=== PATIENT | female | born 1975 | race Caucasian/White ===

== ENCOUNTER 2019-03-15 07:40 | Inpatient (IN) | payer BC, SELFPAY ==
[2016-12-01 05:36] VITALS: BMI 27.0
[2019-03-15 07:52] VITALS: BMI 27.6
[2019-03-15] MEDS: Lactated Ringers 1,000 ML 50 ML IV ×4 (08:22→23:26)
[2019-03-15] MEDS: Oxytocin 30 units/NS 500 ml 30 UNITS/500 ML IV.SOLN IV (08:22)
[2019-03-15] MEDS: 0.9% Normal Saline 100 ML IV.SOLN. INTRA-UTER (08:23)
[2019-03-15 08:43] LABS: Hemoglobin 11.1 g/dl (12.0-15.0); Mean Corp Hgb Conc 34.7 g/gl (32-36); Mean Corpuscular Hgb 32.7 pg (27.0-32.0); Mean Corpuscular Volume 94.4 fL (81-99); Mean Platelet Vol. 11.3 fl (6.2-12.0); Platelet Count 190 K/mm3 (150-450); RBC Distribution Width CV 12.8 % (11.6-14.6); RBC Distribution Width SD 43.9 fl (35.1-43.9); Red Blood Count 3.39 M/mm3 (4.2-5.4); Scan Indicated on CBC? Y/N NO; White Blood Count 8.6 K/mm3 (4.4-11.0)
[2019-03-15] MEDS: fentaNYL-bupivacaine (epidural) 100 ML BAG EPIDURAL ×2 (18:25→22:39)
[2019-03-15] MEDS: Amnioinfusion- 0.9% NS 1,000 ML IV.SOLN. 200 ML INTRA-UTER (18:35)
--- NOTE | 2019-03-15 21:35 | PCM.HP.OB ---
History Date of Admission: 12/04/14 Final EVANGELISTA: 03/19/19 Gestational age: 39 Weeks and 3 Days History of this : This is a 43 year-old, G 3P2 @ 39 3/7 weeks gestation presents for induction of labor due to advanced maternal age. has been uncomplicated to date. 2 previous spontaneous vaginal deliveries without complications in the past Allergies amoxicillin Allergy (Verified 11/11/16 08:39) Rash wheezing cat dander Allergy (Verified 11/11/16 08:38) Other wheezing dog dander Allergy (Verified 11/11/16 08:38) Other Home Medications: Home Medications Ferrous Sulfate [Iron Supplement] 325 mg PO DAILY 12/04/14 Vits [Prenatabs FA ] 1 tablet PO DAILY 12/04/14 Smoking Status: Never smoker Alcohol: None Number of Fetus(es): 1 Heart Tracing: upon admission normal baseline, moderate variability, + accels TOCO Analysis: irreg ctxs History Past Pregnancies: Past Pregnancies Delivery Date Name GA/Weeks Outcome Route Weight Gender Labor Length Anesthesia Delivery Location Provider FOB Expected Delivery Method: Spontaneous Vaginal Review of Systems Constitutional: Denies: Anorexia, Chills, Fever Eyes: Denies: Blurred vision Cardiovascular: Denies: Chest Pain Respiratory: Denies: Cough, Shortness of Breath Genitourinary: Denies: Dysuria Skin: Denies: Rash Neurological: Denies: Blurred vision, Change in Speech Physical Exam General: Alert, Cooperative, No apparent distress Cardiovascular: Regular rate Lungs: Normal air movement Abdomen: Soft, Non-Distended, Gravid, Appropriate for Gestational Age Extremities:: No edema Neurological: Neuro grossly intact Estimated gestational size: Appropriate for gestational size Presentation: Cephalic Cervix Dilation (cm): 1 - medium consistency, mid position Station: -3 Effacement (%): 60 Assessment/Plan This is a 43 year-old, G 3P2 @ 39 3/7 weeks for induction of labor due to advanced maternal age. EFW < 4500 gm clinically, pelvis clinically adequate to expect vaginal delivery Pitocin/gonzales/arom prn for induction Procedure note- at 840 am Gonzales catheter placed into the cervix in the usual sterile fashion and inflated to 30 cc. Placement over internal os confirmed. patient tolerated well.
[2019-03-16] MEDS: Lactated Ringers 1,000 ML 50 ML IV (03:02)
[2019-03-16] MEDS: Oxytocin 30 units/NS 500 ml 30 UNITS/500 ML IV.SOLN 334 UNITS IV (03:57)
--- NOTE | 2019-03-16 04:08 | PCM.OPRPT ---
Vaginal Delivery Maternal Presentation: Medically Indicated Induction - advanced maternal age Method of Induction: Pitocin, De La Fuente Bulb, Amniotomy Amniotic Membrane Rupture Type: Artificial Amniotic Fluid Description: Clear - at rupture, terminal meconium stained fluid Final EVANGELISTA: 03/19/19 Final EVANGELISTA Source: US <20 weeks Gestational age: 39 Weeks and 4 Days Date of Procedure: 03/16/19 Pre-Operative Diagnosis: labor Post-Operative Diagnosis: same Surgery/ Procedure Performed: Spontaneous Vaginal Delivery Type of Anesthesia: Epidural Description of Procedure: A vigorous male infant was delivered SHANNAN over an intact perineum. The remainder the was delivered with maternal pushing and gentle traction only in less than 15 seconds. The Pitocin infusion was initiated for active management of the third stage. The cord was clamped and cut after 1 minute. The infant was attended to by the waiting nursing staff. The placenta was delivered spontaneously and intact. The cervix and vagina were intact. Sponge and needle counts were correct. A vaginal sweep was completed by me. Presentation: SHANNAN Placental Delivery Description: Spontaneous Placenta Disposition: [facility] Cord Vessel Description: 3 Vessels Cord Entanglement: None Drain: De La Fuente to straight drain Estimated Blood Loss: 200 Infant A gender: Male (1 minute): 8 (5 minute): 9 Episiotomy Description: None Laceration: None Medications given after delivery: IV Pitocin Complications: None
[2019-03-16] MEDS: Oxytocin 30 units/NS 500 ml 30 UNITS/500 ML IV.SOLN 167 UNITS IV (04:27)
[2019-03-16] MEDS: Lactated Ringers 1,000 ML 15 ML IV (05:27)
[2019-03-16] MEDS: 0.9% Saline Lock 10 ML Syringe IV (06:28)
[2019-03-16 07:30] VITALS: BP 105/56; PULSE 81; RESP 15; TEMP 36.9
[2019-03-16] MEDS: Naproxen 250 MG Tablet 500 MG PO ×2 (07:58→16:42)
--- NOTE | 2019-03-16 09:07 | NURSING ---
0730 pt oob up to bathroom to void; pt demonstrated pericare; pt gait steady; pt then to chair; pt c/o cramps while nursing - medicated as requested
[2019-03-16 12:00] VITALS: BP 106/52; PULSE 79; RESP 16; TEMP 36.3
[2019-03-16 16:53] VITALS: BP 106/52; PULSE 77; RESP 16; TEMP 36.2
[2019-03-16 20:00] VITALS: BP 100/53; PULSE 77; RESP 14; TEMP 36.5
[2019-03-17] VITALS: PULSE 75; RESP 18
[2019-03-17] MEDS: Naproxen 250 MG Tablet 500 MG PO ×2 (08:13→16:28)
[2019-03-17 08:15] VITALS: BP 120/78; PULSE 70; RESP 16; TEMP 36.3
--- NOTE | 2019-03-17 08:39 | PCM.PN.OB ---
Subjective: Patient sitting up in bed this morning. Reports that she was able to get some sleep last night, feeling more rested this morning. Denies WALKER, scotoma or dizziness. Denies issues with ambulation or urination. Passing flatus but has not had bowel movement yet. Patient reports baby overall latching well. Objective: VSS, Afebrile Nipples without cracks or blisters, no ecchymoses noted Abdomen NT x 4 quadrants, FF midline 3FB below umbilicus +2/4 reflexes in LE, no edema, negative calf tenderness scant rubra lochia, perineum well-approximated - Physical Exam General: Alert, Oriented x3, No apparent distress HEENT: Atraumatic, Normocephalic Lungs: Normal air movement Cardiovascular: Regular rate, Regular Rhythm Abdomen: Soft, Non Tender, Non-Distended Extremities: No edema Psych/Mental Status: Appropriate Vital Signs Temp Pulse Resp BP 97.7 F L 75 18 100/53 L 03/16/19 20:00 03/17/19 00:00 03/17/19 00:00 03/16/19 20:00 Weight: 171 lb 1.259 oz Body Mass Index (BMI) 27.6 Intake and Output for Last 24 Hours 03/15/19 03/16/19 03/17/19 23:59 23:59 23:59 Intake Total 3202 / 3202 2180 / 2180 Output Total 1900 / 1900 2900 / 2900 Balance 1302 / 1302 -720 / -720 Medical Necessity - Tobacco Use Smoking Status: Never smoker Assessment/Plan 43 y/o s/p , PPD #1, Normal PP course P: 1) Continue BF 2) Continue PP orders 3) Anticipate discharge to home tomorrow Christina HALL
[2019-03-17 14:00] VITALS: BP 112/56; PULSE 71; RESP 16; TEMP 37.2
[2019-03-17 20:35] VITALS: BP 114/61; PULSE 71; RESP 18; TEMP 36.9
[2019-03-18 02:06] VITALS: BP 118/58; PULSE 65; RESP 18; TEMP 36.5
--- NOTE | 2019-03-18 08:37 | PCM.PN.OB ---
Subjective: pain well controlled, average lochia - Physical Exam General: Alert, Cooperative, No apparent distress Vital Signs Temp Pulse Resp BP 97.7 F L 65 18 118/58 L 03/18/19 02:06 03/18/19 02:06 03/18/19 02:06 03/18/19 02:06 Oxygen Delivery Method Room Air Weight: 77.6 kg Body Mass Index (BMI) 27.6 Intake and Output for Last 24 Hours 03/16/19 03/17/19 03/18/19 23:59 23:59 23:59 Intake Total 2180 / 2180 Output Total 2900 / 2900 Balance -720 / -720 Medical Necessity - Tobacco Use Smoking Status: Never smoker Assessment/Plan PPD#2 ready for d/c and doing well
--- NOTE | 2019-03-18 08:39 | DCINST_ITS ---
Discharge Diet: No Restrictions Discharge Activity: Return to Normal Activity, May not drive while taking narcotic pain medications., May Shower May resume sexual activity in: 4-6 weeks Additional Activity Instructions:: Nothing in the vagina for 4-6 weeks. You may return to work/school in 6 weeks. Call your doctor if your incision/area has: Continuous Slow Oozing, Sudden Increased Bleeding, Increased Pain/ Swelling, Increased Redness, Foul Smelling Discharge Additional Instructions: If you experience any of the following, contact your healthcare provider. * Bleeding that soaks a pad every hour for 2 hours * Fever 100.4 or higher * Unrelieved incision or abdominal pain * Swelling, redness, discharge or bleeding from your incision or episiotomy site * Your incision begins to separate * Problems urinating (including inability to urinate or burning while urinating). * Visual changes * Severe headache * Flu-like symptoms * Pain or redness in one of both of your breasts * Pain, warmth, tenderness or swelling in your legs, especially the calf area * Frequent nausea and vomiting * Symptoms of depression or anxiety If you experience any of the following, call 911 or go to the nearest Emergency Room. * Chest pain * Problems breathing * Seizure activity * Partial or complete paralysis of a body part, slurred speech, weakness or drooping of the face, or a sudden inability to walk or hold your balance Allergies/Adverse Reactions: Allergies amoxicillin Allergy (Verified 11/11/16 08:39) Rash wheezing cat dander Allergy (Verified 11/11/16 08:38) Other wheezing dog dander Allergy (Verified 11/11/16 08:38) Other Medications to take at Discharge Vits [Prenatabs FA ] 1 tablet PO DAILY 12/04/14 Please Follow Up With: Brenda Loya MD - [phone] When: Call to make an appointment with your doctor in 6 weeks. If you had elevated Blood Pressure or 4th degree laceration you will need to be seen in 2 weeks. Primary Care Physician: Care Physician,No Primary [Primary Care Provider] - Test Results: Test results from this visit will be discussed in further detail at your follow- up appointment, if applicable.
[2019-03-18 08:50] VITALS: BP 122/57; PULSE 71; RESP 16; TEMP 36.4
[2019-03-18] MEDS: Naproxen 250 MG Tablet 500 MG PO (09:05)
== END 2019-03-18 11:30 | disposition home or self-care (01) | DRG 807 ==
PROVIDERS: Admitting Provider Obstetrics & Gynecology; Referring Provider Obstetrics & Gynecology; Visit Provider Obstetrics & Gynecology
DX: O77.0 Labor and delivery complicated by meconium in amniotic fluid (principal); Z37.0 Single live birth; Z3A.39 39 weeks gestation of pregnancy
CPT/HCPCS: 59025; 59050; 85027; 86850; 86900; 99218; J7030; J7120; A4216; G0378

== ENCOUNTER 2022-01-15 09:50 | Emergency (ER) | payer BC, SELFPAY ==
[2022-01-15 09:51] VITALS: BP 130/73; PULSE 93; RESP 17; TEMP 36.4; O2SAT 99; BMI 25.4
--- NOTE | 2022-01-15 10:07 | CT_ITS ---
STUDY: CT BRAIN WITHOUT CONTRAST REASON FOR EXAM: Female, 46 years old. Head injury RADIATION DOSAGE (If Supplied By Facility): CTDIvol = ( 44.99 ) mGy, DLP = ( 745.49 ) mGycm TECHNIQUE: Transaxial CT imaging of the brain was performed without administration of intravenous contrast material. Individualized dose optimization techniques were used for this CT. COMPARISON: No relevant priors. FINDINGS: Normal soft tissue structures. Normal calvarium. Normal size ventricles and extra-axial spaces for the patient''s age. Normal white matter tracts of the cerebral hemispheres. Normal basal ganglia and thalami. Normal brainstem. Normal cerebellum. There is no intracranial hemorrhage. There are no findings of an acute ischemic infarction. Normal visualized paranasal sinuses. CT/Brain/Head without Contrast IMPRESSION: Normal unenhanced CT scan of the brain. Electronically Signed: Eddie Garcia MD at 10:32 EDT ,
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
[2022-01-15 10:54] VITALS: PULSE 87; RESP 16; O2SAT 100
== END 2022-01-15 10:55 | disposition home or self-care (01) ==
PROVIDERS: Emergency Provider Emergency Medicine; Visit Provider Emergency Medicine
DX: S06.0X0A Concussion without loss of consciousness, initial encounter (principal); W22.8XXA Striking against or struck by other objects, initial encounter; Y93.9 Activity, unspecified; Y92.9 Unspecified place or not applicable
CPT/HCPCS: 70450; 99282

== ENCOUNTER → 2022-02-16 | Outpatient (CLI) | payer BC, SELFPAY ==
[2022-02-16 15:09] LABS: Absolute Lymphocyte Count 2.48 X10^3/uL (0.83-4.51); Absolute Neutrophil Count 3.2 X10^3/uL (2.0-7.7); Basophil# 0.05 X10^3/uL; Basophil% 0.8 % (0-1); Eosinophil# 0.16 X10^3/uL; Eosinophils% 2.4 % (0-5); Hemoglobin 11.6 g/dL (12.0-15.0); Lymphocyte # 2.48 X10^3/ul (0.83-4.51); Lymphocyte % 37.7 % (19-41); Mean Corp Hgb Conc 32.2 g/dL (32-36); Mean Platelet Vol. 11.5 fl (6.2-12.0); Monocyte# 0.67 X10^3/uL; Monocyte% 10.2 % (0-10); NRBC Flagged by Analyzer 0 % (0-5); Neutrophil % 48.7 % (47-70); Platelet Count 270 K/mm3 (150-450); RBC Distribution Width CV 12.5 % (11.6-14.6); Red Blood Count 3.87 M/mm3 (4.2-5.4); White Blood Count 6.6 K/mm3 (4.4-11.0)
[2022-02-16 15:25] LABS: Iron 122 ug/dL (50-170); Iron Binding Capacity,Total 327 ug/dL (250-450); PERCENT IRON SATURATION 37.3 % (15.0-55.0)
== END | disposition home or self-care (01) ==
LOC: MFPLAB 12:01
PROVIDERS: PCP Family Medicine; Referring Provider Family Medicine; Visit Provider Family Medicine
DX: D64.9 Anemia, unspecified (principal)
CPT/HCPCS: 36415; 83540; 83550; 85025

== ENCOUNTER → 2025-01-23 | Outpatient (CLI) | payer OTHER, SELFPAY ==
--- NOTE | 2025-01-23 16:56 | RAD_ITS ---
EXAM: Three views of the right wrist CLINICAL HISTORY: Right wrist pain COMPARISON: None. TECHNIQUE: Three views of the right wrist FINDINGS: There is no evidence of soft tissue swelling. The right wrist joint is in anatomic alignment. No evidence of fracture or dislocation. There is mild radiocarpal joint space narrowing which may be positional or age related. RAD/Wrist min 3 Views IMPRESSION: No definite fracture or dislocation seen within the radiocarpal joint. Bony co ntusion/ligamentous injury can not be ruled out with this examination. If this of concern, please obtain MRI. Reading Location: [id number]
== END | disposition home or self-care (01) ==
LOC: MTRAD 16:55
PROVIDERS: PCP Student in an Organized Health Care Education/Training Program; Referring Provider Physician Assistant Surgical; Visit Provider Physician Assistant Surgical
DX: S66.911A Strain of unspecified muscle, fascia and tendon at wrist and hand level, right hand, initial encounter (principal)
CPT/HCPCS: 73110

== ENCOUNTER 2025-05-01 16:30 | Outpatient (RCR) | payer OTHER, SELFPAY ==
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
--- NOTE | 2025-02-17 18:58 | HP.OTREVAL ---
Re-Evaluation Intro: EAMON Plummer, It has been my pleasure to treat BERNIE GUTIERREZ over the last 5 visits for strain R hand, fascia and tendon of wrist. Please see the progress note below for an update on the occupational therapy plan of care! Subjective Subjective: pt states there is no change in symptoms. DOI was January 16, 2025. pt states she still cannot remember if the child forced her wrist into flexion or extension- Objective Objective/Function: right wrist ROM 60/65 increase from 45/40 right spine nurse 30# no change right lateral pinch 12# right tripod pinch 10# feeling of discomfort in forearm ( muscles strain ) NO Increase in pain with resistive wrist flexion/extension or forearm supination or pronation. as pt has indicated no change in her symptoms therapist would like pt to wear her splint at night and while at work- off at home for 30 min at a time trying 3 x a day) if pain increases will adj. program- NO PUSH or PULL for wt.bearing at this time. Plan Plan Frequency: 3x /Week Duration: 4-6 Weeks Visits in this POC: 4-6 weeks (2-3x week) Plan: initiate isometric biceps (thumb up position) /triceps wrist flexion/ ext wrist on at night wean out of splint for 30 min 3x a day Goals Goals Patient Goals: Regain Strength, Decrease Pain, Decrease Swelling/Stiffness, Use Hand/Wrist/Arm Normally Again, Increase ROM, Resume Former Household Responsibilities (Cooking,Cleaning,Yard, etc.) and Resume Hobbies Goal:ROM equal to unaffected hand: Yes Goal:Business Employment Specialist/Pinch strength at least 75% of unaffected hand: Yes Goal:No pain with affected hand use: Yes Goal:Full use of affected hand in daily activities including work: Yes Other Goal: pt will verbalize/demonstrate 100% accuracy in proper joint protection and positioning by discharge Anticipated Interventions Anticipated Interventions Anticipated Interventions: A/AAROM/PROM, Strengthening, Triggerpoint Release, Modalities, Orthoses, Joint Protection/Energy Conservation, Ergonomic Education, Education re Diagnosis, Caregiver Training and Home Program Re-Evaluation Ending Re-evaluation ending: Please do not hesitate to contact me at [phone] by phone or if you have questions or concerns regarding this new plan of care! Sincerely, Glendy Olivas, WADER/[place], CHT
--- NOTE | 2025-07-08 16:02 | HP.OT.NRP ---
Patient Information Patient Information: BERNIE GUTIERREZ was seen in my office for initial evaluation on 01/30/25. The following Plan of Care was established for this patient: POC Established Initial Frequency: 3x /Week Initial Duration: 4-6 Weeks Plan: new C9 date range 04/16/25-05/30/25 OT 2-3x a week for 6 weeks Anticipated Interventions Anticipated Interventions: A/AAROM/PROM, Strengthening, Triggerpoint Release, Modalities, Orthoses, Joint Protection/Energy Conservation, Ergonomic Education, Education re Diagnosis, Caregiver Training and Home Program Last Seen Last Seen: This patient was last seen in our office 05/01/25. Pertinent comments regarding their Occupational therapy will appear below: no further apts have been scheduled and due to time lapse in services pt is d/c at this time. At this point I will be discontinuing this patient from occupational therapy. I would be happy to see this patient again in the future if found appropriate by the physician. Thank you! Glendy Olivas, OTR/L, CHT
== END 2025-05-01 19:00 | disposition home or self-care (01) ==
LOC: OT 16:30
PROVIDERS: PCP Family Medicine; Referring Provider Physician Assistant Surgical; Visit Provider Physician Assistant Surgical
DX: S66.911D Strain of unspecified muscle, fascia and tendon at wrist and hand level, right hand, subsequent encounter (principal)
CPT/HCPCS: 97035; 97110; 97140; 97166; 97530